=== PATIENT | male | born 1975 | race Caucasian/White ===

== ENCOUNTER 2018-06-01 09:36 | Day surgery (SDC) | payer BC ==
[2018-06-01] VITALS (12 sets, daily range): BP systolic 120–136; BP diastolic 64–86
[~2018-06-01] VITALS: Ht 193 cm; Wt 93.0 kg
[2018-06-01] MEDS ORDERED: NKM (10:03)
[2018-06-01] MEDS ORDERED: Bupivacaine w/Epi 0.5% 30ml Vial INJ ONE (10:26)
--- NOTE | 2018-06-01 10:28 | Pre-Procedure Note/Attestation ---
Pre-Procedure Note/Attestation Complete Prior to Procedure Planned Procedure: not applicable Procedure Narrative: examination under anesthesia; hemorrhoidectomy Indications for Procedure Pre-Operative Diagnosis: hemorrhoids Attestation I attest that I discussed the nature of the procedure; its benefits; risks and complications; and alternatives (and the risks and benefits of such alternatives ), prior to the procedure, with the patient (or the patient's legal logistics service representative). I attest that, if there was a reasonable possibility of needing a blood transfusion, the patient (or the patient's legal logistics service representative) was given the [facility] standardized written summary, pursuant to the [place] Blood Safety Act ([place] Health and Safety Code # 1645, as amended). I attest that I re-evaluated the patient just prior to the surgery and that there has been no change in the patient's H&P, except as documented below: Moises Elaine Jun 01, 2018 10:28
[2018-06-01] MEDS ORDERED: cefOXitin Sod 2 GM in D5W 110 ML IV ONE (10:30)
[2018-06-01] MEDS ORDERED: LR 1000ml 1,000 ML IVLG SCH (10:44)
[2018-06-01] MEDS ORDERED: Midazolam 2mg/2ml Inj IVP PRN (10:45)
[2018-06-01] MEDS ORDERED: Hydromorphone 0.5mg/0.5ml inj IVP PRN (10:45)
[2018-06-01] MEDS ORDERED: Ketorolac 30mg Inj IV PRN ×2 (10:45)
[2018-06-01] MEDS ORDERED: LORazepam Inj 2mg/ml 1ml IV PRN (10:45)
[2018-06-01] MEDS ORDERED: Acetaminophen (Non formulary) 100 ML IV ONE (10:45)
[2018-06-01] MEDS ORDERED: DiphenhydrAMINE 50mg/ml Inj IVP PRN (10:45)
[2018-06-01] MEDS ORDERED: Meperidine 50mg/ml Inj(FOR RIGORS ONLY) IVP PRN (10:45)
[2018-06-01] MEDS ORDERED: HYDROcodone/Acetamin 7.5/325 tab ORAL PRN (10:45)
[2018-06-01] MEDS ORDERED: oxyCODONE HCL/Acetaminophen 5/325mg ORAL PRN (10:45)
[2018-06-01] MEDS ORDERED: Norco 5mg/325mg tab ORAL PRN (10:45)
[2018-06-01] MEDS ORDERED: Atropine Sulfate 0.4mg/ml inj IVP PRN (10:45)
[2018-06-01] MEDS ORDERED: fentaNYL 100 mcg/2 mL IV PRN (10:45)
[2018-06-01] MEDS ORDERED: Metoclopramide 10mg/2ml Inj IVP PRN (10:45)
--- NOTE | 2018-06-01 10:45 | Anethesia Preoperative Eval ---
Anesthesia Pre-op PMH/ROS General Date of Evaluation: Jun 01, 2018 Time of Evaluation: 10:56 Anesthesiologist: Erasto ASA Score: ASA 1 Mallampati Score Class I : Soft palate, uvula, fauces, pillars visible Class II: Soft palate, uvula, fauces visible Class III: Soft palate, base of uvula visible Class IV: Only hard plate visible Mallampati Classification: Class I Surgeon: Chele Diagnosis: Hemorrhoids Surgical Procedure: Hemorroidectomy Anesthesia History: none Family History: no anesthesia problems Allergies: Coded Allergies: No Known Allergies (Unverified , 06/01/18) Medications: see eMAR Patient NPO?: Yes Past Medical History PSxH Narrative: R Elbow Sx Anesthesia Pre-op Phys. Exam Physician Exam Last Vital Signs Date Time Temp Pulse Resp B/P (MAP) Pulse Ox O2 Delivery O2 Flow Rate FiO2 06/01/18 10:01 Room Air 06/01/18 09:59 97.8 61 18 124/70 98 Constitutional: NAD Neurologic: CN 2-12 intact Cardiovascular: RRR Respiratory: CTA Gastrointestinal: S/NT/ND Airway Exam Mallampati Score: Class I MO: full ROM: full Teeth: intact Anesthesia Pre-op A/P Risk Assessment & Plan Assessment: ASA 1 Status Change Before Surgery: No Pre-Antibiotics Dru Grams Cefoxitin Given Within 1 Hr of Incision: Yes Time Given: 11:08 Ravi Post MD Jun 01, 2018 10:45
[2018-06-01] MEDS ORDERED: Dexamethasone 4mg/ml vial ONE (10:46)
[2018-06-01] MEDS ORDERED: Sodium Chloride 10ml vial INJ ONE (10:46)
[2018-06-01] MEDS ORDERED: Lidocaine 1% MPF 10mg/ml 5ml ONE (10:46)
[2018-06-01] MEDS ORDERED: Lidocaine 1% Plain 30 ml INJ ONE (10:46)
[2018-06-01] MEDS ORDERED: fentaNYL 100 mcg/2 mL IV ONE (10:47)
[2018-06-01] MEDS ORDERED: cefOXitin 2gm Inj ONE (10:48)
[2018-06-01] MEDS ORDERED: Sterile Water Irrig 1000ml IRRIG ONE (11:00)
[2018-06-01] MEDS ORDERED: Propofol 1,000mg/ 100ml btl IV ONE (11:00)
[2018-06-01] MEDS ORDERED: NS Irrig 1000ml ONE (11:00)
[2018-06-01] MEDS ORDERED: LR 1000ml ONE (11:00)
[2018-06-01] MEDS ORDERED: NS Irrig 1000ml IRRIG ONE (11:31)
--- NOTE | 2018-06-01 11:38 | Immediate Post-Op Evaluation ---
Immediate Post-Op Evalulation Immediate Post-Op Evalulation Procedure: Hemorroidectomy Date of Evaluation: Jun 01, 2018 Time of Evaluation: 12:45 IV Fluids: 800 LR Blood Products: 0 Estimated Blood Loss: 10 Urinary Output: 0 Blood Pressure Systolic: 129 Blood Pressure Diastolic: 69 Pulse Rate: 70 Respiratory Rate: 16 O2 Sat by Pulse Oximetry: 99 Temperature (Fahrenheit): 97 Pain Score (1-10): 2 Nausea: No Vomiting: No Complications 0 Patient Status: awake, reacts, patent, extubated, none Hydration Status: adequate Dru Grams Cefoxitin IV Given Within 1 Hr of Incision: Yes Time Given: 11:08 Ravi Post MD Jun 01, 2018 11:38
--- NOTE | 2018-06-01 11:39 | 48 Hour Post Anesthesia Eval ---
Post Anesthesia Evaluation Procedure: Hemorroidectomy Date of Evaluation: Jun 01, 2018 Time of Evaluation: 14:53 Blood Pressure Systolic: 121 0: 68 Pulse Rate: 62 Respiratory Rate: 18 Temperature (Fahrenheit): 98.2 O2 Sat by Pulse Oximetry: 99 Airway: patent Nausea: No Vomiting: No Pain Intensity: 2 Hydration Status: adequate Cardiopulmonary Status: Stable Mental Status/LOC: patient returned to baseline Follow-up Care/Observations: 0 Post-Anesthesia Complications: 0 Follow-up care needed: ready to discharge Ravi Post MD Jun 01, 2018 11:39
[2018-06-01] MEDS ORDERED: Gelfoam Size TOPIC ONE (12:05)
[2018-06-01] MEDS ORDERED: Glycopyrrolate 0.2mg/ml 1ml Vial ONE (12:05)
[2018-06-01] MEDS ORDERED: Lidocaine HCl 2% Jelly 6ml Tube TOPIC ONE (12:05)
[2018-06-01] MEDS ORDERED: Betadine 4oz Bottle TOPIC ONE (12:07)
--- NOTE | 2018-06-01 12:28 | Brief Operative Note ---
Immediate Post Operative Note Operative Note Pre-op Diagnosis: hemorrhoids Procedure: 1. examination under anesthesia 2. hemorrhoidectomy Post-op Diagnosis: same as pre-op Surgeon: nanci Anesthesiologist: michell Anesthesia: general, local Specimen: yes Complications: none Condition: stable Fluids: see records Estimated Blood Loss: minimal Drains: none Implant(s) used?: No Moises Elaine Jun 01, 2018 12:28
--- NOTE | 2018-06-01 19:30 | Operative Note - Dictated ---
DATE OF OPERATION: 06/01/2018 PREOPERATIVE DIAGNOSIS: Internal and external hemorrhoids. POSTOPERATIVE DIAGNOSIS: Internal and external hemorrhoids. OPERATION PERFORMED: 1. Examination under anesthesia. 2. Hemorrhoidectomy. ATTENDING SURGEON: Moises Elaine M.D. INVESTMENT BROKER: None. ANESTHESIOLOGIST: Ravi Post M.D. ANESTHESIA: General REPAIR TABLE OPERATOR plus local. ESTIMATED BLOOD LOSS: Minimal. IV FLUIDS: Please see anesthesia records. COMPLICATIONS: None. DRAINS: None. SPECIMENS: Hemorrhoids. COUNTS: Sponge and needle count correct x2. WOUND CLASSIFICATION: Class III. ANTIBIOTICS: The patient given 2 g of cefoxitin 1 hour prior to cut time. INDICATIONS FOR PROCEDURE: This is a 42-year-old male who was seen after referral by Dr. Ammon Bryant for evaluation of worsening hemorrhoids. The patient has had hemorrhoids for a significant period of time, which has worsened over the years and now has near grade 4 hemorrhoids. The patient has bleeding with bowel movements as well as discomfort. On examination, the patient had extensive hemorrhoidal disease and full exam could not be performed in the office for the patient's discomfort. At this time, surgery was indicated and recommended. Risks, benefits, and alternatives for surgery were discussed with the patient in detail who consented to examination under anesthesia and hemorrhoidectomy. OPERATIVE NOTE: The patient was taken to the operating room and made comfortable. Preoperative time-out was taken identifying the patient, procedure, operative staff, and surgical staff. SCDs were placed. No Sepulveda catheter was inserted. Preoperative antibiotics were given one hour prior to cut time. General anesthesia was induced and the patient was intubated. Following this, with all bony prominences well padded and airway protected, the patient was placed in the prone saida-knife position with the arms facing the port. All bony prominences were clearly identified and padded with gel pads as well as pillows. Skin tape was used to help with visualization of the anus. Next, the anus was then prepped and draped in standard surgical fashion. On external examination, the patient had significant hemorrhoidal disease with multiple large pedicles being identified almost near circumferentially. At this time, dilators were used and the entirety of the anus was examined. The patient had multiple small and large hemorrhoidal bundles. The 2 of note were a right lateral superior and a left lateral that were the 2 most significant with internal and external component. There were a few smaller superior and few small inferior and 1 moderate inferior hemorrhoid noted as well. At this time, decision made to go off on the largest hemorrhoidal bundle, which was the right lateral superior hemorrhoidal bundle. A dilator was placed and a 3-0 Vicryl was placed at the base of the hemorrhoidal bundle. The base was ligated with the 3-0 Vicryl suture and following this, the pedicle to be ligated and divided was clearly marked was placed for appropriate marking. At this time, a Thunderbeat energy device was used and the pedicle was divided and ligated to the Vicryl suture. Following this, the Vicryl suture was then used to close the remaining defect and removing the hemorrhoid bundle. Strict care was taken to ensure no damage to the sphincter muscle. The Vicryl was ran and once the tissues were reapproximated, a small opening was left at the skin level for drainage. At this time, attention was turned to the second large bundle on the left lateral aspect. In a similar fashion, a Vicryl suture was placed at the base followed by division using a Thunderbeat energy device. The tissues were reapproximated with 3-0 Vicryl suture with leaving a small opening at the end for drainage. At this time, a majority of the patient's disease was cared for and given the extensive nature of these 2 large pedicles, decision made not to proceed with any further small pedicles in any other quadrants for risk of stricture or incontinence potentially. This discussion was had with the patient preoperatively. Following this, a moderate-sized inferior bundle was ligated in a banding fashion using a 3-0 Vicryl [id number] suture. At this time, no further external hemorrhoids of significance were identified. Of note, local anesthetic was infiltrated in a circumferential block and through the incisions throughout the procedure for the patient's comfort. The wound was irrigated. Hemostasis was noted and a Gel-Foam with lidocaine jelly was placed in the anus followed by dressings. The patient tolerated the procedure well, was extubated, and taken to the postanesthetic care unit in stable condition. Moises Elaine M.D. DR: NGUYEN JOB#: [id number] CC: ANDRA
== END 2018-06-01 14:45 | disposition home or self-care (01) ==
LOC: SUR 09:36
DX: K64.3 Fourth degree hemorrhoids (principal); E66.3 Overweight
CPT/HCPCS: 46260; J0694; J1100; J2001; J2250; J2405; J2704; J3010; 94003; 94150; A4246